=== PATIENT | male | born 1935 | race Caucasian/White ===

== ENCOUNTER → 2018-05-26 | Outpatient (CLI) | payer MEDICARE, OTHER ==
--- NOTE | 2018-05-26 11:01 | Diagnostic Imaging Report ---
Examination: MRI SPINE LUMBAR WITHOUT CONTRAST History: Right leg pain and foot drop and left hip pain. Prior back surgery 09/28/2017. Comparison studies: None Technique: Sagittal, coronal and axial T2 , sagittal T1 and STIR; axial spin density oblique. Findings: Number of lumbar vertebral bodies: Five. Alignment: Normal lordosis. No scoliosis. Soft tissues: A 4cm interpolar left renal T2 hyperintense lesion, likely represent a cyst. Posterior paraspinal soft tissues and muscles: Mild diffuse fatty atrophy. Lower thoracic cord: Normal in signal and morphology. The tip of the conus is at L1. Cauda equina: No masses. No arachnoiditis. Vertebrae: No fractures, infection or neoplasm. Prior decompressive laminectomies from L2 through L5. Degenerative changes: L1-L2: Asymmetric to the right disc bulge, moderate ligamentum flavum thickening, and moderate bilateral facet arthropathy result in severe right and mild left neural foraminal narrowing and mild canal stenosis. L2-L3: Diffuse disc bulge and mild bilateral facet arthropathy result in mild bilateral neural foraminal narrowing. L3-L4: Mild diffuse disc bulge and moderate bilateral facet arthropathy result in mild right and moderate left neural foraminal narrowing. L4-L5: Mild diffuse disc bulge and mild bilateral facet arthropathy result in mild bilateral neural foraminal narrowing. L5-S1: Diffuse disc bulge and moderate bilateral facet arthropathy result in moderate right and mild left neural foraminal narrowing and mild canal stenosis. IMPRESSION: 1. Prior decompressive laminectomies from L2 through L5. 2. 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 3. Severe right neural foraminal narrowing at L1-L2, moderate left neural foraminal narrowing at L3-L4 and moderate right foraminal narrowing at L5-S1. 4. Left renal 4 cm T2 hyperintense lesion, likely represents a cyst. Signed by: Dr. Elzbieta Craig M.D. on 05/26/2018 10:58 AM
== END ==
LOC: MRI 09:21
DX: R53.1 Weakness (principal); M62.81 Muscle weakness (generalized); R20.2 Paresthesia of skin; M25.552 Pain in left hip; R53.81 Other malaise; M21.371 Foot drop, right foot
CPT/HCPCS: 72148